=== PATIENT | male | born 1940 | race Caucasian/White ===

== ENCOUNTER 2022-02-06 13:24 | Emergency (ER) | payer OTHER, MEDICARE ==
[~2022-02-06] VITALS: Ht 180.3 cm; Wt 85.2 kg
[2022-02-06 13:55] LABS: HEMATOCRIT 39.4 % (39.0-50.0); HEMOGLOBIN 12.9 g/dl (14.0-18.0); IMMATURE GRANULOCYTES 0.2 % (0.0-5.0); MEAN CELL VOLUME 96.3 fL CALC (80.0-100.0); MEAN CORPUSCULAR HGB 31.5 pG CALC (26.0-32.0); MEAN CORPUSCULAR HGB CONC 32.7 g/dL CAL (32.0-36.0); NEUT# 4.16 thou/uL (1.82-7.42); RED BLOOD COUNT 4.09 mill/uL (4.70-6.10); RED CELL DISTRI WIDTH 12.6 % (11.5-15.5)
[2022-02-06 14:03] LABS: URINE BILIRUBIN - DIPSTICK NEGATIVE (NEGATIVE); URINE BLOOD DIPSTICK NEGATIVE (NEGATIVE); URINE COLOR YELLOW; URINE GLUCOSE - DIPSTICK NEGATIVE (NEGATIVE); URINE KETONE TRACE mg/dL (NEGATIVE); URINE LEUK ESTERASE NEGATIVE (NEGATIVE); URINE PROTEIN - DIPSTICK NEGATIVE (NEG-TRACE); URINE UROBILINOGEN - DIPSTICK 0.2 E.U./dL (0.2)
[2022-02-06 14:04] LABS: URINE NITRITE - DIPSTICK NEGATIVE (Negative)
[2022-02-06 14:13] LABS: ALBUMIN 3.7 g/dL (3.2-5.0); ALKALINE PHOSPHATASE 83 u/l (38-126); ANION GAP 12 (6-22 (CALC)); BILIRUBIN, TOTAL 0.8 mg/dL (0.0-1.4); BUN 16 mg/dL (8-23); BUN/CREATININE RATIO 16 (12-20 (CALC)); CARBON DIOXIDE 23 mmol/l (22-30); CHLORIDE 106 mmol/l (95-108); GFR > 60 ML/MIN (>=60 (CALC)); GFR FOR AFR.AMER. > 60 ML/MIN (>=60 (CALC)); POTASSIUM 3.7 mmol/l (3.5-5.1); SGOT/AST 33 u/l (19-48); SODIUM 137 mmol/l (137-146); TOTAL PROTEIN 7.1 g/dL (6.3-8.2)
[2022-02-06 14:25] LABS: MYOGLOBIN 45 ng/mL (0 - 121)
[2022-02-06] MEDS ORDERED: TOPROL XL50 MG PO (14:27)
[2022-02-06] MEDS ORDERED: SIMVASTATIN40 MG PO (14:29)
[2022-02-06] MEDS ORDERED: ZESTRIL10 MG PO (14:29)
[2022-02-06] MEDS ORDERED: ATORVASTATIN CA40 MG PO (14:29)
[2022-02-06] MEDS ORDERED: OMEPRAZOLE DR20 MG PO (14:30)
[2022-02-06] MEDS ORDERED: AMOX/K CLAV875 M1 PO (15:09)
[2022-02-06 16:40] VITALS: BP 142/78
== END 2022-02-06 16:43 | disposition home or self-care (01) | DRG 195 ==
LOC: ED 13:24
PROVIDERS: Nurse Practitioner
DX: J18.9 Pneumonia, unspecified organism (principal); S51.012A Laceration without foreign body of left elbow, initial encounter; I10 Essential (primary) hypertension; E11.9 Type 2 diabetes mellitus without complications; K21.9 Gastro-esophageal reflux disease without esophagitis; F03.90 Unspecified dementia, unspecified severity, without behavioral disturbance, psychotic disturbance, mood disturbance, and anxiety; E78.5 Hyperlipidemia, unspecified; W18.30XA Fall on same level, unspecified, initial encounter; Z91.81 History of falling

== ENCOUNTER 2022-04-01 17:19 | Emergency (ER) | payer OTHER, MEDICARE ==
[2022-04-01] VITALS (7 sets, daily range): BP systolic 117–152; BP diastolic 80–127
[~2022-04-01] VITALS: Ht 180.3 cm; Wt 78.5 kg
[~2022-04-01 17:19] MED LIST: AMOX/K CLAV875 M1 PO; ATORVASTATIN CA40 MG PO; OMEPRAZOLE DR20 MG PO; SIMVASTATIN40 MG PO; TOPROL XL50 MG PO; ZESTRIL10 MG PO
[2022-04-01 18:06] LABS: HEMOGLOBIN 12.5 g/dl (14.0-18.0); IMMATURE GRANULOCYTES 0.2 % (0.0-5.0); MEAN CELL VOLUME 96.8 fL CALC (80.0-100.0); MEAN CORPUSCULAR HGB CONC 32.1 g/dL CAL (32.0-36.0); NEUT# 4.02 thou/uL (1.82-7.42); RED BLOOD COUNT 4.03 mill/uL (4.70-6.10); RED CELL DISTRI WIDTH 12.7 % (11.5-15.5)
[2022-04-01 18:35] LABS: URINE BILIRUBIN - DIPSTICK NEGATIVE (NEGATIVE); URINE BLOOD DIPSTICK NEGATIVE (NEGATIVE); URINE COLOR YELLOW; URINE GLUCOSE - DIPSTICK NEGATIVE (NEGATIVE); URINE KETONE NEGATIVE (NEGATIVE); URINE LEUK ESTERASE NEGATIVE (NEGATIVE); URINE PROTEIN - DIPSTICK NEGATIVE (NEG-TRACE); URINE UROBILINOGEN - DIPSTICK 0.2 E.U./dL (0.2)
[2022-04-01 18:40] LABS: URINE NITRITE - DIPSTICK NEGATIVE (Negative)
[2022-04-01 18:49] LABS: ALBUMIN 3.8 g/dL (3.2-5.0); ALKALINE PHOSPHATASE 63 u/l (38-126); ANION GAP 13 (6-22 (CALC)); BILIRUBIN, TOTAL 0.3 mg/dL (0.0-1.4); BUN 21 mg/dL (8-23); BUN/CREATININE RATIO 20 (12-20 (CALC)); CARBON DIOXIDE 26 mmol/l (22-30); CHLORIDE 104 mmol/l (95-108); CREATININE 1.1 mg/dL (0.7-1.3); GFR > 60 ML/MIN (>=60 (CALC)); GFR FOR AFR.AMER. > 60 ML/MIN (>=60 (CALC)); POTASSIUM 4.2 mmol/l (3.5-5.1); SGOT/AST 26 u/l (19-48); SODIUM 139 mmol/l (137-146); TOTAL PROTEIN 6.8 g/dL (6.3-8.2)
== END 2022-04-01 20:00 | DRG 149 ==
LOC: ED 17:19
PROVIDERS: Family Medicine
DX: R42 Dizziness and giddiness (principal); I10 Essential (primary) hypertension; E78.5 Hyperlipidemia, unspecified; N40.0 Benign prostatic hyperplasia without lower urinary tract symptoms; F03.90 Unspecified dementia, unspecified severity, without behavioral disturbance, psychotic disturbance, mood disturbance, and anxiety; K21.9 Gastro-esophageal reflux disease without esophagitis; Z91.81 History of falling

== ENCOUNTER 2022-04-04 21:06 | Emergency (ER) | payer OTHER, MEDICARE ==
[~2022-04-04] VITALS: Ht 180.3 cm; Wt 88.6 kg
[2022-04-04 21:23] VITALS: BP 99/74
[2022-04-04 22:05] LABS: HEMATOCRIT 36.9 % (39.0-50.0); HEMOGLOBIN 11.8 g/dl (14.0-18.0); IMMATURE GRANULOCYTES 0.1 % (0.0-5.0); MEAN CELL VOLUME 96.3 fL CALC (80.0-100.0); MEAN CORPUSCULAR HGB 30.8 pG CALC (26.0-32.0); NEUT# 6.94 thou/uL (1.82-7.42); RED BLOOD COUNT 3.83 mill/uL (4.70-6.10); RED CELL DISTRI WIDTH 12.7 % (11.5-15.5)
[2022-04-04 22:22] LABS: ALBUMIN 3.6 g/dL (3.2-5.0); ALKALINE PHOSPHATASE 74 u/l (38-126); ANION GAP 14 (6-22 (CALC)); BUN 20 mg/dL (8-23); BUN/CREATININE RATIO 18 (12-20 (CALC)); CARBON DIOXIDE 23 mmol/l (22-30); CHLORIDE 109 mmol/l (95-108); CREATININE 1.1 mg/dL (0.7-1.3); GFR > 60 ML/MIN (>=60 (CALC)); GFR FOR AFR.AMER. > 60 ML/MIN (>=60 (CALC)); SGOT/AST 21 u/l (19-48); SODIUM 141 mmol/l (137-146); TOTAL PROTEIN 6.5 g/dL (6.3-8.2)
[2022-04-04 22:23] LABS: BILIRUBIN, TOTAL 0.5 mg/dL (0.0-1.4)
[2022-04-04 22:34] LABS: MYOGLOBIN 118 ng/mL (0 - 121)
[2022-04-04 23:29] LABS: URINE BILIRUBIN - DIPSTICK NEGATIVE (NEGATIVE); URINE BLOOD DIPSTICK NEGATIVE (NEGATIVE); URINE COLOR YELLOW; URINE GLUCOSE - DIPSTICK NEGATIVE (NEGATIVE); URINE KETONE TRACE mg/dL (NEGATIVE); URINE LEUK ESTERASE NEGATIVE (NEGATIVE); URINE PROTEIN - DIPSTICK NEGATIVE (NEG-TRACE); URINE SPECIFIC GRAVITY 1.025
[2022-04-04 23:38] LABS: URINE NITRITE - DIPSTICK NEGATIVE (Negative)
== END 2022-04-05 04:30 | DRG 884 ==
LOC: ED 21:06
PROVIDERS: Emergency Medicine
DX: F03.90 Unspecified dementia, unspecified severity, without behavioral disturbance, psychotic disturbance, mood disturbance, and anxiety (principal); I10 Essential (primary) hypertension; E78.5 Hyperlipidemia, unspecified; K21.9 Gastro-esophageal reflux disease without esophagitis; Z20.822 Contact with and (suspected) exposure to COVID-19

== ENCOUNTER 2022-04-08 10:22 | Emergency (ER) | payer OTHER, MEDICARE ==
[~2022-04-08] VITALS: Ht 180.3 cm; Wt 85.0 kg
[2022-04-08 10:28] VITALS: BP 155/85
[2022-04-08 11:01] VITALS: BP 147/108
[2022-04-08 12:00] VITALS: BP 125/103
[2022-04-08 12:59] LABS: URINE BILIRUBIN - DIPSTICK NEGATIVE (NEGATIVE); URINE BLOOD DIPSTICK NEGATIVE (NEGATIVE); URINE COLOR YELLOW; URINE GLUCOSE - DIPSTICK NEGATIVE (NEGATIVE); URINE KETONE TRACE mg/dL (NEGATIVE); URINE LEUK ESTERASE NEGATIVE (NEGATIVE); URINE PROTEIN - DIPSTICK NEGATIVE (NEG-TRACE); URINE SPECIFIC GRAVITY 1.015
[2022-04-08 13:01] LABS: URINE NITRITE - DIPSTICK NEGATIVE (Negative)
[2022-04-08 13:46] VITALS: BP 125/103
== END 2022-04-08 14:00 | disposition home or self-care (01) | DRG 605 ==
LOC: ED 10:22
PROVIDERS: Family Medicine
DX: S50.812A Abrasion of left forearm, initial encounter (principal); E78.5 Hyperlipidemia, unspecified; F03.90 Unspecified dementia, unspecified severity, without behavioral disturbance, psychotic disturbance, mood disturbance, and anxiety; K21.9 Gastro-esophageal reflux disease without esophagitis; I10 Essential (primary) hypertension; W19.XXXA Unspecified fall, initial encounter; Y92.129 Unspecified place in nursing home as the place of occurrence of the external cause; Z91.81 History of falling

== ENCOUNTER 2022-07-03 04:48 | Inpatient (IN) | payer OTHER, MEDICARE ==
[~2022-07-03] VITALS: Ht 180.3 cm; Wt 76.0 kg
[2022-07-03] VITALS (27 sets, daily range): BP systolic 63–135; BP diastolic 43–89
--- NOTE | 2022-07-03 04:49 | NUR ---
PT TO ROOM 9 VIA EMS.
[2022-07-03] MEDS ORDERED: LISINOPRIL5 MG PO (05:14)
[2022-07-03] MEDS ORDERED: METOPROLOL SUC200 MG PO (05:15)
[2022-07-03] MEDS ORDERED: SIMVASTATIN10 MG PO (05:16)
[2022-07-03] MEDS ORDERED: TAMSULOSIN HCL0.4 MG PO (05:17)
[2022-07-03] MEDS ORDERED: VITAMIN B-12500 MCG PO (05:17)
[2022-07-03] MEDS ORDERED: VITAMIN D325 MCG PO (05:18)
[2022-07-03 05:29] LABS: HEMOGLOBIN 13.2 g/dl (14.0-18.0); MEAN CELL VOLUME 93.5 fL CALC (80.0-100.0); MEAN CORPUSCULAR HGB 30.8 pG CALC (26.0-32.0); NEUT# 8.39 thou/uL (1.82-7.42); RED BLOOD COUNT 4.28 mill/uL (4.70-6.10); RED CELL DISTRI WIDTH 13.4 % (11.5-15.5)
[2022-07-03 05:41] LABS: ALBUMIN 3.7 g/dL (3.2-5.0); ANION GAP 12 (6-22 (CALC)); BUN 26 mg/dL (8-23); BUN/CREATININE RATIO 19 (12-20 (CALC)); CARBON DIOXIDE 26 mmol/l (22-30); CHLORIDE 106 mmol/l (95-108); CPK 40 u/l (52-200); CREATININE 1.4 mg/dL (0.7-1.3); GFR FOR AFR.AMER. 59 ML/MIN (>=60 (CALC)); GFR OTHER RACES 49 ML/MIN (>=60 (CALC)); MAGNESIUM 1.7 mg/dL (1.6-2.3); POTASSIUM 3.3 mmol/l (3.5-5.1); SODIUM 140 mmol/l (137-146); TOTAL PROTEIN 6.5 g/dL (6.3-8.2)
[2022-07-03 05:44] LABS: IMMATURE GRANULOCYTES 0.4 % (0.0-5.0)
--- NOTE | 2022-07-03 05:49 | NUR ---
Reassessment of patient completed. No distress noted.
[2022-07-03 06:01] LABS: ALKALINE PHOSPHATASE 277 u/l (38-126); BILIRUBIN, TOTAL 1.6 mg/dL (0.0-1.4); SGOT/AST > 2250 u/l (19-48)
--- NOTE | 2022-07-03 06:34 | NUR ---
Reassessment of patient completed. No distress noted.
--- NOTE | 2022-07-03 07:01 | NUR ---
Reassessment of patient completed. No distress noted. STRAIGHT CATH PATIENT WITH 0.8 FR CATH. PATIENT TOLERATED WELL. STRAIGHT CATH OUTPUT APPROXIMATELY 200ML OF DARK YELLOW URINE.
[2022-07-03 07:25] LABS: URINE BILIRUBIN - DIPSTICK NEGATIVE (NEGATIVE); URINE BLOOD DIPSTICK TRACE-INTACT (NEGATIVE); URINE COLOR YELLOW; URINE GLUCOSE - DIPSTICK NEGATIVE (NEGATIVE); URINE KETONE TRACE mg/dL (NEGATIVE); URINE LEUK ESTERASE NEGATIVE (NEGATIVE); URINE PH 5.5 (4.5-8.0); URINE PROTEIN - DIPSTICK TRACE mg/dL (NEG-TRACE)
[2022-07-03 07:27] LABS: URINE NITRITE - DIPSTICK NEGATIVE (Negative)
[2022-07-03 07:40] LABS: URINE RBC 0-2 RBC/hpf (0-5); URINE SQUAMOUS EPITHELIAL CELL RARE EPI/hpf (0-FEW)
[2022-07-03 07:41] LABS: URINE COARSE GRANULAR CAST FEW lpf; URINE RENAL EPITHELIAL CELLS MODERATE hpf
[2022-07-03 07:42] LABS: URINE CASTS FEW lpf (NONE-RARE)
--- NOTE | 2022-07-03 09:47 | NUR ---
Reassessment of patient completed. No distress noted.
--- NOTE | 2022-07-03 10:35 | NUR ---
Reassessment of patient completed. No distress noted.
--- NOTE | 2022-07-03 10:37 | NUR ---
patient transported to med/surg report given to bijal
--- NOTE | 2022-07-03 10:49 | NUR ---
JEANINE THAKKAR CALLED. VERIFIED WITH RANDY AT THE [facility] PATIENT HASN'T EATEN SINCE 07/02 AT DINNER. UPDATED OR STAFF AND
--- NOTE | 2022-07-03 10:50 | NUR ---
PT ARRIVED T [facility] ROOM 280 VIA STRETCHER. BEDSIDE REPORT RECIEVED. PT A/OX1.PT FROM [facility]. ASSESSMENT COMPLETED. RESPIRATIONS EVEN AND UNLBAORED ON ROOM AIR. TELE MONTORING IN PLACE. BOWEL SOUNDS ACTIVE. #20G LAC AND #20G EMS LH FLUSHED, SITES PATENT.SKIN INTACT. PT DENIES OF ANY PAINS OR DISCOMFORTS. PT ORIENTED TO ROOM AND CALL LIGHT SYSTEM. BED ALARM ACTIVE.
--- NOTE | 2022-07-03 14:01 | NUR ---
UPDATE PROVIDED TO JEANINE THAKKAR
--- NOTE | 2022-07-03 14:25 | NUR ---
PT ARRIVED BACK TO [facility] ROOM 280 VIA STRETCHER. BEDSIDE REPORT RECIEVED. RESPIRATIONS EVEN AND UNLBAORED. TELE MONITORING PLACED. IV SITE PATENT. PT C/ OF BACK PAIN, MEDICATED PRIOR TO ARRIVING TO FLOOR. ALL SAFTEY PRECAUTIONS IN PLACE WITH MARY LIGHT IN REACH. BED ALARM ACTIVE
--- NOTE | 2022-07-03 15:56 | NUR ---
JOURNEYMAN PRESS OPERATOR CONTACTED OR STAFF TO ENSURE POTASSIUM IV WAS ADMINISTERED. OR STAFF INFORMED JOURNEYMAN PRESS OPERATOR THAT THEY WERE INSTRUCTED BY ANESTHIA TO NOT GIVE. NEW ORDER TO BE OBTAINED.
--- NOTE | 2022-07-03 16:40 | NUR ---
PT REMAINS SLEEPING IN SEMI FOWLERS POSITION. RESPIRATIONS EVEN AND UNLABORED ON ROOM AIR. #20G LAC AND #20G EMS LH REMAINS IN PLACE. TELE MONITORING IN PLACE. NO SIGNS OF ANY DISTRESSES AT THIS TIME. ALL SAFTEY PRECAUTIONS ARE IN PLACE WITH CALL LIGHT IN REACH. BED ALARM ACTIVE
--- NOTE | 2022-07-03 19:32 | NUR ---
PHYSICIAN NOTIFIED OF BP READING OF 60/40 - 85/55 AFTER BEING PLACED IN [place]. NEW ORDERS WERE RECEIVED FOR BOLUS OF NS X1 AND REASSESS. PHYSICIAN TO BE NOTIFIED OF PT'S RESPONSE.
--- NOTE | 2022-07-03 19:54 | NUR ---
BP 95/55, IN RESPONSE TO BOLUS OF NS BEING ADMINISTERED AND PT PLACED IN [place] POSITION FOR A BP OF 60/40.
--- NOTE | 2022-07-03 21:03 | NUR ---
PT HAS NOT URINATED SINCE 1640 PER CHARTING AND REPORTS OF CAMPUS RECEPTIONIST, PT WAS UNABLE TO USE URINAL W/MUCH COAXING, I WAS BLADDER SCANNING HIM HE WAS INCONTINENT OF MODERATE AMOUNT OF URINE. SCAN NOW SHOWS RETENTION OF 89MLS. WILL CONTINUE TO MONITOR.
--- NOTE | 2022-07-03 22:00 | NUR ---
PT WAS ASSISTED USING URINAL FOR AN OUTPUT OF 100CC OF DARK [place]OLO URINE. HE IS ABLE TO ANSWER BRIEF ONE WORD ANSWER QUESTIONS APPROPRIATELY. ABD IS DISTENDED SOFT W/SLIGHT FIRMNESS TO BILAT SIDES OF ABD. [employer] SALES REPRESENTATIVE DAKOTA MENDEZ WAS IN THE ROOM AND ASSESSED PT ABD ALSO. WILL CONTINUE TO MONITOR RESPONSE TO ABX, IV FLUIDS. BP 107/43 AT THIS TIME.
--- NOTE | 2022-07-03 23:50 | NUR ---
NOTIFIED PHYSICIAN NETWORK PROGRAMMER OF LOW BP, ORDERS TO TRANSFER TO ICU RECEIVED AND SURGEON CALLED AT THIS TIME. NEW ORDERS RECEIVED.
[2022-07-04] VITALS (143 sets, daily range): BP systolic 29–219; BP diastolic 11–192
--- NOTE | 2022-07-04 | NUR ---
PT TRANSFERED TO ICU ORDERS WERE RECEIVED BY PHYSICIAN FABRIC DESIGNER, FOR HYPOTENSIVE STATE.
--- NOTE | 2022-07-04 00:41 | NUR ---
NOTIFIED PT'S OF TRANSFER TO ICU AND CIRCUMSTANCE. VERBALIZED UNDERSTANDING.
--- NOTE | 2022-07-04 00:52 | NUR ---
PT ARRIVED TO ICU BED 1 AT 0020. BEDSIDE REPORT GIVEN BY MED SURG NURSE. MANUAL BP 64/50, HR 99. PT ORIENTED TO SELF. LUNG SOUNDS CLEAR, ABDOMEN DISTENDED AND SOFT.
--- NOTE | 2022-07-04 00:56 | NUR ---
DOPAMINE DRIP STARTED AT 0056, HR 99 64/50. DR. MARTINEZ CONTACATED AND OKAYED THE USE OF PERIPHERAL LINE FOR INFUSION. WILL CONTINUE TO MONITOR HR, BP, AND INFUSION SITE.
[2022-07-04 00:58] LABS: HEMATOCRIT 21.2 % (39.0-50.0)
--- NOTE | 2022-07-04 01:31 | NUR ---
DR. BRYAN CALLED R/T HGB OF 7. ORDERED TO TRANSFUSE 2 UNITS PRBC. TYPE AND SCREEN DRAWN AT THIS TIME, AWAITING RESULTS FOR TRANSFUSION.
--- NOTE | 2022-07-04 02:00 | NUR ---
THIS NURSE CALLED AT 0217 TO OBTAIN CONSENT FOR BLOOD TRANSFUSION, GAVE CONSENT. THIS NURSE EXPLAINED TO THAT PT HAD BEEN MOVING/ROLLING AROUND IN THE BED, AGITATED AND YELLING AT STAFF, BP REMAINING LOW, DOPAMINE DRIP STARTED TO HELP PRESSURE. INFORMED THAT WE WOULD CALL IF THERE WERE ANY CHANGES TO PT CONDITION.
--- NOTE | 2022-07-04 03:00 | NUR ---
DR. BRYAN CALLED AT 0255 AND UPDATED ON PT CONDITION. VERBAL ORDERS GIVEN TO INSERT NGT TO LIS, PLACE ALDRIDGE, OBTAIN EKG, OBTAIN TROPONIN W/ LABS, PROPOFAL DRIP IF NEEDED AND BP APPROPRIATE.
--- NOTE | 2022-07-04 03:05 | NUR ---
DR. MARTINEZ CALLED AND UPDATED ON PT CONDITION AT 0307. ORDER GIVEN TO APPLY SOFT WRIST RESTRAINTS FOR PT SAFETY TO PREVENT REMOVAL OF ETT, LINES, AND EQUIPMENT.
--- NOTE | 2022-07-04 03:55 | NUR ---
DR. MARTINEZ CLLED AT 0355 R/T BP 74/29. ORDERS GIVEN TO PLACE CENTRAL LINE AND START LEVOPHED DRIP. DR. MARTINEZ ALSO UPDATED ON PT ABG. PROVIDER STATES NO FURTHER ORDERS AT THIS TIME. DR. EGAN CONTACTED FOR CENTRAL LINE PLACEMENT.
--- NOTE | 2022-07-04 04:00 | NUR ---
THIS NURSE ENTERED PT ROOM AT 0225 R/T HR STEADILY BRADYING DOWN FROM 130 TO 70'S. PT FOUND UNRESPONSIVE, AGONAL BREATHING, W/ A PULSE. BEGAN BAGGING AT 0230. AT 0234 HR 129, BP 116/80, JOSH AMBRIZ AND RESP. THERAPY AT BEDSIDE. 20 MG ETOMIDATE GIVEN AT 0240, 50 MG ROCURONIUM GIVEN AT 0241, PT INTUBATED AT 0242 W/ #8 ETT AT 24CM. #20G IV STARTED TO QUAN/SHOULD AT 0256. 16 FR ALDRIDGE PLACED AT 0300. SOFT WRIST RESTRAINTS APPLIED AT 0310. DOPAMINE INFUSING AT 15 MCG/KG/MIN. 2 UNITS PRBCS RAPIDLY INFUSED.
[2022-07-04 04:09] LABS: MEAN CORPUSCULAR HGB 30.8 pG CALC (26.0-32.0); MEAN CORPUSCULAR HGB CONC 31.7 g/dL CAL (32.0-36.0); NEUT# 19.34 thou/uL (1.82-7.42); RED BLOOD COUNT 3.67 mill/uL (4.70-6.10); RED CELL DISTRI WIDTH 14.2 % (11.5-15.5)
--- NOTE | 2022-07-04 04:11 | NUR ---
UPDATED ON PT CONDITION VIA PHONE AT 4919. GAVE VERBAL CONSENT FOR CENTRAL LINE PLACEMENT.
[2022-07-04 04:25] LABS: HEMATOCRIT 35.6 % (39.0-50.0); HEMOGLOBIN 11.3 g/dl (14.0-18.0)
[2022-07-04 04:26] LABS: IMMATURE GRANULOCYTES 0.8 % (0.0-5.0)
[2022-07-04 04:36] LABS: BILIRUBIN, TOTAL 1.4 mg/dL (0.0-1.4); BUN 24 mg/dL (8-23); BUN/CREATININE RATIO 19 (12-20 (CALC)); CHLORIDE 115 mmol/l (95-108); CREATININE 1.3 mg/dL (0.7-1.3); DIRECT BILIRUBIN 0.2 mg/dl (0.0-0.3); GFR FOR AFR.AMER. > 60 ML/MIN (>=60 (CALC)); GFR OTHER RACES 53 ML/MIN (>=60 (CALC)); SODIUM 145 mmol/l (137-146)
[2022-07-04 04:40] LABS: URINE BILIRUBIN - DIPSTICK NEGATIVE (NEGATIVE); URINE BLOOD DIPSTICK TRACE-INTACT (NEGATIVE); URINE CLARITY CLEAR; URINE COLOR YELLOW; URINE GLUCOSE - DIPSTICK NEGATIVE (NEGATIVE); URINE KETONE TRACE mg/dL (NEGATIVE); URINE LEUK ESTERASE NEGATIVE (Negative); URINE NITRITE - DIPSTICK NEGATIVE (Negative); URINE PH 5.5 (4.5-8.0); URINE PROTEIN - DIPSTICK TRACE mg/dL (NEG-TRACE); URINE SPECIFIC GRAVITY 1.025
[2022-07-04 04:43] LABS: ALBUMIN 2.3 g/dL (3.2-5.0); ALKALINE PHOSPHATASE 107 u/l (38-126); ANION GAP 22 (6-22 (CALC)); CARBON DIOXIDE 13 mmol/l (22-30); SGOT/AST 557 u/l (19-48); TOTAL PROTEIN 4.7 g/dL (6.3-8.2)
--- NOTE | 2022-07-04 04:45 | NUR ---
TRIPLE LUMEN CENTRAL LINE PLACED TO [facility] BY JOSH WATKINS AT 0453. DOPAMINE INCREASED TO 20 MCG/KG/MIN, HR 141, UNABLE TO OBTAIN BP AT THIS TIME, ATTEMPTED SEVERAL TIMES MANUALLY, BP TOO LOW TO OBTAIN READING. LEVOPHED DRIP STARTED AT 8 MCG/MIN AT 0505. LEVOPHED INCREASED TO 9 MCG/MIN AT 0507, HR 142, STILL UNABLE TO OBTAIN BP. LEVO INCREASED TO 10 MCG/MIN AT 0509. BP 128/109 AT 0510. 0540 BP 50/30 AND LEVO INCREASED TO 11 MCG/MIN. UNABLE TO OBTAIN BP AT 0545, LEVO INCREASED TO 13MCG/MIN. UNABLE TO OBTAIN BP AT 0550, LEVO INCREASED TO 15 MCG/MIN. UNABLE TO OBTAIN BP AT 0600, LEVO INCREASED TO 20 MCG/MIN. ATTEMPTED TO CALL DR. MARTINEZ, BUT UNABLE TO REACH HIM. CHANNELER NOTIFIED. 0610 BP 81/44 (46), LEVO INCREASED TO 25 MCG/MIN. 0619 BP 50/35, LEVO INCREASED TO 30 MCG/MIN. DR. BRYAN UPDATED AT 0623 AND GAVE ORDERS TO START VASOPRESSIN DRIP.
--- NOTE | 2022-07-04 06:44 | NUR ---
DR. MARTINEZ CALLS THE UNIT FOR UPDATE. GIVES ORDERS TO START VANCOMYCIN 1 G Q 24 HR AND OBTAIN BLOOD CULTURES FROM CENTRAL LINE.
--- NOTE | 2022-07-04 08:00 | NUR ---
PATIENT IS VENTED, RUNNING MULITPLE IV DRIPS. RAPID HEART RATE, UNSTABLE BP, 95.0 TEMP. AND FAMILY FRIEND AT BEDSIDE. NG PLACMENT PATENT. 8ETT, 25 AT THE LIP. CLEAR LUNG SOUNDS. ACTIVE BOWEL SOUNDS. SOFT ABDOMEN. TRACE EDEMA IN BILATERAL HANDS. DOES MOVE HIS HEAD SIDE TO SIDE, MOVED HIS ARMS SLIGHTLY UPWARDS. HAVE TO TAKE PAULINA BP'S WHEN MACHINE CAN'T READ THE LOW BP'S. TITRATING DRIPS PER HOSPITAL'S POLICY. COOL/DRY SKIN. WEAK PULSES. RESTRAINTS ARE IN PLACE. EDUCATION WAS PROVIDED TO HIS AND FAMILY FRIEND "DADA" AT BEDSIDE, THEY BOTH STATED THEY UNDERSTOOD. SAFETY MEASURES IN PLACE. WILL CONTINUE TO MONITOR PER HOSPITAL'S POLICY.
--- NOTE | 2022-07-04 08:20 | NUR ---
Dr Milton present at bedside to assess pt and discuss plan of care with family
--- NOTE | 2022-07-04 08:35 | NUR ---
PRELIMINARY BLOOD CULTURES SHOW GRAM - RODS IN 1 SET, BOTH BOTTLES PER ROHINI. REPORTED TO DR MARTINEZ. STARTED PT ON CEFEPIME 2G IV Q12H. WILL F/U WITH FINALS
--- NOTE | 2022-07-04 10:37 | NUR ---
RECIEVED CONSENT FOR A-LINE FROM , LOOKING FOR MATERIAL FOR A-LINE
--- NOTE | 2022-07-04 10:37 | NUR ---
RECIEVED CONSENT FROM THE FOR A POSSIBLE A-LINE. MICHELLE GAVE VERBAL CONSENT.
--- NOTE | 2022-07-04 11:30 | NUR ---
PATIENT'S ABDOMEN BECAME MORE FIRM TO THE TOUCH, REMAINS DISTENDED. PATIENT DOES MOVE WHEN PALPATING ABDOMEN.
[2022-07-04 11:33] LABS: HEMATOCRIT 23.3 % (39.0-50.0); HEMOGLOBIN 7.2 g/dl (14.0-18.0)
[2022-07-04 11:50] LABS: CREATININE 1.6 mg/dL (0.7-1.3)
--- NOTE | 2022-07-04 11:50 | NUR ---
CALLED DR. MARTINEZ FOR FAINT HEART RATE, AND UNABLE TO GET A MANNUEL BP. STATED HE WILL BE COMING OVER TO ICU.
[2022-07-04 11:58] LABS: POTASSIUM 5.4 mmol/l (3.5-5.1)
--- NOTE | 2022-07-04 12:10 | NUR ---
DR. MARTINEZ AT BEDSIDE, DISCUSSED PLAN WITH PATIENTS AND FAMILY FRIEND, MYSELF.
--- NOTE | 2022-07-04 13:00 | NUR ---
TEMP IS 96.0, PLACED BEAR HUGGER ON PATIENT.
--- NOTE | 2022-07-04 14:00 | NUR ---
DR. MARTINEZ STATED TO KEEP CLOSE I&O'S ON PATIENT, MONITOR URINE OUTPUT.
--- NOTE | 2022-07-04 14:21 | NUR ---
PT IS AN 82 YOM WHO PRESENTS WITH SEPSIS. ALL MEDS IN PTS CHART REVIEWED. T = 97.1 F WBC = 21 THOUS/UL SCR = 1.3 CRCL = 48 PT IS ON CEFEPIME 2G IV Q12H. VANCOMYCIN ORDERED FOR PHARMACY TO DOSE. START VANCOMYCIN 1500MG IV Q24H. TROUGH TO BE DRAWN 30 M PRIOR TO 4TH DOSE ON 07/07 @ 0800. GOAL TROUGH IS 15-20 MCG/ML. PHARMACY WILL CONTINUE TO FOLLOW.
--- NOTE | 2022-07-04 14:30 | NUR ---
patient bladder scanned, 280ml .
--- NOTE | 2022-07-04 15:15 | NUR ---
spoke with at bedside, family friend maty present, doctor explained patient's condition, asked what they'd like to do as far as code status, education was provided by dr. llamas. stated she'd like him to be a DNR.
[2022-07-04 15:32] LABS: HEMATOCRIT 15.5 % (39.0-50.0); HEMOGLOBIN 4.7 g/dl (14.0-18.0)
--- NOTE | 2022-07-04 15:58 | NUR ---
PATIENT RECIEVING FIRST UNIT OF PRBC.
--- NOTE | 2022-07-04 16:30 | NUR ---
TITRATION: VASOPRESSIN STARTED AT 0718 AT 0.03, AT 0918 INCREASED TO 0.035, AT 1055 INCREASED TO 0.04, AT 1420 DECREASED TO 0.035, AND AT 1600 TO 0.03. DOPAMINE STARTED AT 20MCG, DECREASED TO 15MCG AT 1324, DECREASED TO 10MCG AT 1430, DECREASED TO 5MCG AT 1500, AT 1533 STOPPED, PER DOCTORS REQUEST TO STOP THIS DRIP IN ORDER TO DECREASE HR, HR CURRENTLY 58, DECREASED FROM THE 140'S THIS MORNING. DOCTOR IS AWARE.
--- NOTE | 2022-07-04 18:06 | NUR ---
patient getting second prbc at this time.
--- NOTE | 2022-07-04 18:25 | NUR ---
TITRATED VASOPRESSIN OFF AT THIS TIME, PER DR'S VERBAL ORDERS.
--- NOTE | 2022-07-04 18:30 | NUR ---
UPDATED ABOUT PATIENT'S CONDITION.
--- NOTE | 2022-07-04 19:25 | NUR ---
ASSESSMENT COMPLETED. LUNG SOUNDS REMAIN CLEAR, ABDOMEN FIRM AND DISTENDED, NGT TO LIS DRAINAGE APPEARS TO BE BLOOD, GENERALIZED EDEMA 2+ PITTING, BEAR HUGGER IN PLACE, TEMP 97.0, UNABLE TO OBTAIN MANUAL BP, VASOPRESSIN DRIP RESTARTED AT 0.03 UNITS/MIN, LEVOPHED GTT INFUSING AT 40 MCG/MIN, BP AT 1936 45/29 (34), HR 67, O2 100% ON VENT. PT UNRESPONSIVE TO VERBAL OR PAINFUL STIMULI, ALDRIDGE IN PLACE W/ NO URINE OUTPUT. PULSES VERY WEAK.
--- NOTE | 2022-07-04 20:20 | NUR ---
DR. MARTINEZ CALLED AT 2013 TO UPDATE ON PT CONDITION. THIS NURSE INFORMED PROVEDER THAT VASOPRESSIN GTT WAS RESTARTED R/T INABILITY TO OBTAIN BP; PT NGT APPEARS TO BE DRAINING BLOOD; AND THERE IS NO UOP IN ALDRIDGE. PROVIDER GAVE ORDERS TO OBTIAN CBC & CMP NOW AND INCREASE MAINTAINANCE LR TO 500 ML/HR.
[2022-07-04 20:34] LABS: IMMATURE GRANULOCYTES 0.4 % (0.0-5.0); MEAN CELL VOLUME 101.4 fL CALC (80.0-100.0); MEAN CORPUSCULAR HGB 30.2 pG CALC (26.0-32.0); MEAN CORPUSCULAR HGB CONC 29.8 g/dL CAL (32.0-36.0); NEUT# 9.85 thou/uL (1.82-7.42); RED BLOOD COUNT 2.15 mill/uL (4.70-6.10); RED CELL DISTRI WIDTH 15.3 % (11.5-15.5)
--- NOTE | 2022-07-04 20:41 | NUR ---
VOSPRESSIN INCREASED TO 0.035 R/T BP 57/25 ( 35) HR 82.
[2022-07-04 20:49] LABS: ALKALINE PHOSPHATASE 64 u/l (38-126); BUN 23 mg/dL (8-23); BUN/CREATININE RATIO 11 (12-20 (CALC)); CHLORIDE 110 mmol/l (95-108); CREATININE 2.1 mg/dL (0.7-1.3); GFR FOR AFR.AMER. 37 ML/MIN (>=60 (CALC)); GFR OTHER RACES 30 ML/MIN (>=60 (CALC)); SODIUM 136 mmol/l (137-146)
[2022-07-04 20:51] LABS: HEMATOCRIT 21.8 % (39.0-50.0)
[2022-07-04 20:52] LABS: HEMOGLOBIN 6.5 g/dl (14.0-18.0)
[2022-07-04 21:18] LABS: POTASSIUM 5.4 mmol/l (3.5-5.1)
[2022-07-04 21:21] LABS: ALBUMIN 1.2 g/dL (3.2-5.0); ANION GAP 23 (6-22 (CALC)); BILIRUBIN, TOTAL 0.8 mg/dL (0.0-1.4); CARBON DIOXIDE 8 mmol/l (22-30); SGOT/AST 4055 u/l (19-48); TOTAL PROTEIN 2.8 g/dL (6.3-8.2)
--- NOTE | 2022-07-04 21:22 | NUR ---
DR. MARTINEZ CALLED TO REPORT CRITICAL LAB VALUES. HGB 6.5, PLT 60, CO2 8. ORDERS GIVEN TO TRANSFUSE 1 UNIT PRBC, DECREASE LR TO 250 ML/HR WHEN BLOOD STARTS, GIVE 1 AMP BICARB PUSH, AND CONTINUE BICARB DRIP.
--- NOTE | 2022-07-04 22:00 | NUR ---
SOFT WRIST RESTRAINTS REMOVED AT THIS TIME.
--- NOTE | 2022-07-04 22:07 | NUR ---
DR. MARTINEZ CALLED AT 2158 TO INFORM THAT THE PATIENT'S PUPILS ARE FIXED AND DILATED. PUPILS ALSO ASSESSED BY DAKOTA CARBAJAL, WHO AGREES PUPILS ARE FIXED AND DILATED. PT IS UNRESPONSIVE TO PAINFUL STIMULI. DR. MARTINEZ INSTRUCTED THIS NURSE TO CALL THE IN TO SEE THE PT AND DISCUSS TREATMENT PLAN. CALLED AT 9168 AND INSTRUCTED TO COME TO THE HOSPITAL SOON POSSIBLE.
--- NOTE | 2022-07-04 23:21 | NUR ---
AND FRIEND DADA AT BEDSIDE. DR. MARTINEZ SPOKE TO THE ON THE PHONE TO EXPLAIN PATIENT CONDITION AND DISCUSS TREATMENT PLAN. ORDERS GIVEN BY DR. MARTINEZ TO TURN OFF LEVOPHED GTT AND VASOPRESSIN GTT; EXTUBATE PT ONCE HEART HAS STOPPED.
--- NOTE | 2022-07-04 23:32 | NUR ---
LEVOPHED GTT AND VASOPRESSIN GTT TURNED OFF AT 2328. AND DADA (FRIEND) AT BEDSIDE.
--- NOTE | 2022-07-04 23:55 | NUR ---
SILVER SOLUTION MIXER WAS SHOWING ASYSTOLE. UPON EXAMINATION THIS NURSE COULD NOT PALPATE OR HEAR A HEART BEAT. NURSE RAVEN, DAKOTA EXAMINED PATIENT TO VERIFY THAT THERE WAS NO HEART BEAT. DR. MARTINEZ CALLED AND UPDATED. DR. MARTINEZ STATED TIME OF IS 2338 AND CAUSE OF IS SEPSIS. VENTILATOR TURNED OFF @2344.
--- NOTE | 2022-07-04 23:59 | NUR ---
[facility] .
--- NOTE | 2022-07-05 00:07 | NUR ---
Patient . Vent turned off at [address] Villa.
--- NOTE | 2022-07-05 01:35 | NUR ---
[facility] PICKED UP PT BODY AT 0133.
== END 2022-07-04 23:39 | disposition expired | DRG 853 ==
LOC: ED 04:48 → ED-I 09:24 → MS2 09:40 → ED 09:40 → ICU 09:40
PROVIDERS: Family Medicine; Internal Medicine; Surgery; ADMIT Internal Medicine; ATTEND Internal Medicine
PROC: 0FT44ZZ Resection of Gallbladder, Percutaneous Endoscopic Approach (ICD-10-PCS; principal; 2022-07-03)
PROC: 0FB04ZX Excision of Liver, Percutaneous Endoscopic Approach, Diagnostic (ICD-10-PCS; 2022-07-03)
PROC: BF00YZZ Plain Radiography of Bile Ducts using Other Contrast (ICD-10-PCS; 2022-07-03)
PROC: 0BH17EZ Insertion of Endotracheal Airway into Trachea, Via Natural or Artificial Opening (ICD-10-PCS; 2022-07-04)
PROC: 5A1935Z Respiratory Ventilation, Less than 24 Consecutive Hours (ICD-10-PCS; 2022-07-04)
PROC: 02HV33Z Insertion of Infusion Device into Superior Vena Cava, Percutaneous Approach (ICD-10-PCS; 2022-07-04)
PROC: 3E043XZ Introduction of Vasopressor into Central Vein, Percutaneous Approach (ICD-10-PCS; 2022-07-04)
PROC: 30243N1 Transfusion of Nonautologous Red Blood Cells into Central Vein, Percutaneous Approach (ICD-10-PCS; 2022-07-04)
PROC: 30243N1 Transfusion of Nonautologous Red Blood Cells into Central Vein, Percutaneous Approach (ICD-10-PCS; 2022-07-04)
PROC: 30243N1 Transfusion of Nonautologous Red Blood Cells into Central Vein, Percutaneous Approach (ICD-10-PCS; 2022-07-04)
PROC: 30243N1 Transfusion of Nonautologous Red Blood Cells into Central Vein, Percutaneous Approach (ICD-10-PCS; 2022-07-04)
DX: A41.9 Sepsis, unspecified organism (principal); J96.90 Respiratory failure, unspecified, unspecified whether with hypoxia or hypercapnia; K81.0 Acute cholecystitis; E87.2 Acidosis; R65.20 Severe sepsis without septic shock; E87.6 Hypokalemia; D64.89 Other specified anemias; I10 Essential (primary) hypertension; E78.5 Hyperlipidemia, unspecified; K21.9 Gastro-esophageal reflux disease without esophagitis; F03.90 Unspecified dementia, unspecified severity, without behavioral disturbance, psychotic disturbance, mood disturbance, and anxiety; I71.4 Abdominal aortic aneurysm, without rupture; N40.1 Benign prostatic hyperplasia with lower urinary tract symptoms; N39.498 Other specified urinary incontinence; Z91.81 History of falling; Z95.828 Presence of other vascular implants and grafts; Z20.822 Contact with and (suspected) exposure to COVID-19
CPT/HCPCS: J0692; J1650; J3370; P9016; Q9967